=== PATIENT | female | born 1995 | race Caucasian/White ===

== ENCOUNTER → 2017-08-21 | Outpatient (CLI) | payer OTHER | END | disposition home or self-care (01) | LOC: LABWHC1 16:14 | PROVIDERS: ATTEND Obstetrics & Gynecology | DX: O20.0 Threatened abortion (principal); Z3A.00 Weeks of gestation of pregnancy not specified | CPT/HCPCS: 36415; 84702; 86850; 86900; 86901 ==

== ENCOUNTER → 2017-08-23 | Outpatient (CLI) | payer OTHER | END | disposition home or self-care (01) | LOC: LABWHC1 14:11 | PROVIDERS: ATTEND Obstetrics & Gynecology | DX: O20.0 Threatened abortion (principal) | CPT/HCPCS: 36415; 84702 ==

== ENCOUNTER → 2017-08-25 | Outpatient (CLI) | payer OTHER | END | disposition home or self-care (01) | LOC: LABWHC1 12:04 | PROVIDERS: ATTEND Obstetrics & Gynecology | DX: O20.0 Threatened abortion (principal) | CPT/HCPCS: 36415; 84702 ==

== ENCOUNTER → 2017-09-11 | Outpatient (CLI) | payer OTHER | END | disposition home or self-care (01) | LOC: LABWHC1 11:05 | PROVIDERS: ATTEND Obstetrics & Gynecology | DX: O02.1 Missed abortion (principal) | CPT/HCPCS: 36415; 84702 ==

== ENCOUNTER → 2017-09-20 | Outpatient (CLI) | payer OTHER | END | disposition home or self-care (01) | LOC: LABWHC1 10:54 | PROVIDERS: ATTEND Obstetrics & Gynecology | DX: O03.9 Complete or unspecified spontaneous abortion without complication (principal) | CPT/HCPCS: 36415; 84702 ==

== ENCOUNTER 2018-11-21 04:30 | Outpatient (CLI) | payer OTHER ==
[2018-11-21 06:31] VITALS: BP 129/78; PULSE 69; RESP 20; TEMP 96.7
[2018-11-21] MEDS ORDERED: PROMETHAZINE INJ 25 MG/ML 1 ML VIAL IM STA (07:59)
--- NOTE | 2018-12-12 21:54 | P.MSEPDOC ---
Presenting Problems - Arrival Data Date of Arrival on Unit: 11/21/18 Time of Arrival on Unit: 04:30 Mode of Transport: Ambulatory - Complaint OB-Reason for Admission/Chief Complaint: Possible Onset of Labor Medical History - Information : 1 Para: 0 Term: 0 : 0 Abortions: Spontaneous or Elective: 0 Number of Living Children: 0 - Gestational Age Gestational Age by SAMY (wks/days): 39 Weeks and 1 Days Review of Systems - Review of Systems Constitutional: No problems Breast: No problems ENT: No problems Cardiovascular: No problems Respiratory: No problems Gastrointestinal: No problems Genitourinary: No problems Musculoskeletal: No problems Neurological: No problems Skin: No problems Vital Signs - Temperature Temperature: 96.7 F Temperature Source: Temporal Artery Scan - Pulse Right Brachial Pulse Rate: 69 Pulse Assessment Method: Automatic Cuff - Respirations Respiratory Rate: 20 Oxygen Delivery Method: Room Air O2 Sat by Pulse Oximetry: 98 - Blood Pressure Right Arm Blood Pressure: 129/78 Blood Pressure Mean: 95 Blood Pressure Source: Automatic Cuff Medical Screen Scoring (Pre) - Cervical Exam Dilation: 1-3 cm = 1 Membranes: Intact - Uterine Contractions Frequency: > or = 36 weeks =2 Duration: > 40 seconds = 2 Intensity: Contraction palpated strong = 1 - Maternal Vital Signs Maternal Temperature: N/A Maternal Blood Pressure: N/A Signs of Preeclampsia: Nausea/Vomiting = 1 - Pain Assessment Pain Location and Character: Perineal Pain Scale Used: Numeric (1 - 10) Pain Intensity: 8 Pain Management Goal: 4 Pain Description: *Acute, Cramping Pain Radiation Location: back Pain Frequency: Intermittent Pain Duration: 8 Pain Duration Units: Hours Pain Behavior: Facial Grimacing, Nausea, Vocalization Pain Aggravating Factors: Contractions Non-Pharmacological Interventions: Darkened Room, Ice, Position/Reposition - Maternal Trauma Maternal Trauma: N/A - Assessment Baseline FHR: 120 NST: Reactive Position: N/A - Total Score Total Score (Pre): 7 - Level of Risk Level of Risk: Medium (6-9) Physician Notification (Pre) - Physician Notified Physician Notified Date: 11/21/18 Physician Notified Time: 07:45 Spoke With: Dr Leonard New Order Received: Yes - Notification Comment Comment: dr leonard at bedside, examines pt, gives orders, pt discharged home Disposition - Disposition OB Disposition: Discharge to home Discharge Date: 11/21/18 Discharge Time: 08:18 I agree with the RN Medical Screening Exam: No Physician's MSE Comment: Dr. Leonard's patient. Risk & Benefit of care provided described in d/c instruction: No Diagnosis: FALSE LABOR, UNSPECIFIED
== END 2018-11-21 08:18 | disposition home or self-care (01) ==
LOC: FBPOP 04:30
PROVIDERS: ATTEND Obstetrics & Gynecology
DX: O47.1 False labor at or after 37 completed weeks of gestation (principal); Z3A.39 39 weeks gestation of pregnancy
CPT/HCPCS: 59025; 99213; 96372; J2550

== ENCOUNTER 2018-11-22 18:14 | Inpatient (IN) | payer OTHER ==
[2018-11-22] MEDS ORDERED: LIDOCAINE 0.5% (PF) 5 MG/ML (50 ML SDV) SQ PRN (18:35)
[2018-11-22] MEDS ORDERED: CARBOPROST TROMETHAMINE 250 MCG/ML 1 ML AMP IM PRN (18:35)
[2018-11-22] MEDS ORDERED: METHYLERGONOVINE 0.2 MG/ML 1 ML AMP IM PRN (18:35)
[2018-11-22] MEDS ORDERED: TERBUTALINE 1 MG/ML VIAL SQ PRN (18:35)
[2018-11-22] MEDS ORDERED: OXYTOCIN 10 UNIT/ML 1 ML VIAL IM PRN (18:35)
[2018-11-22] MEDS ORDERED: PENICILLIN G POTASSIUM 5,000,000 UNIT in DEXTROSE 5% IN WATER 100 ML IVPB STA ×2 (18:35)
[2018-11-22] MEDS ORDERED: BUTORPHANOL 1 MG/ML 1 ML VIAL IV PRN (18:47)
[2018-11-22 18:54] VITALS: BMI 38.1
[2018-11-22] MEDS: LACTATED RINGERS 1,000 ML IV SCH ×2 (18:54→20:19)
[2018-11-22 19:04] LABS: Basophils % (A) 0 %; Eosinophils # (A) 0.1 k/uL (0-0.7); Eosinophils % (A) 1 %; HCT 47.4 % (34.0-46.0); HGB 15.2 gm/dL (11.4-16.0); Lymphocytes # (A) 1.8 k/uL (1.0-4.8); Lymphocytes % (A) 13 %; MCH 28.1 pg (25.0-35.0); MCHC 32.1 g/dL (31.0-37.0); MCV 87.6 fL (80.0-100.0); Mean Platelet Volume 7.5; Monocytes # (A) 0.5 k/uL (0-1.0); Monocytes % (A) 4 %; Neutrophils % (A) 81 %; Platelet Count 276 k/uL (150-450); RBC 5.41 m/uL (3.80-5.40); WBC 13.7 k/uL (3.8-10.6)
--- NOTE | 2018-11-22 19:19 | P.HPOB ---
History of Present Illness H&P Date: 11/22/18 Chief Complaint: 39-2/7 weeks, early active labor The patient is a 23-year-old 2 para 0010 admitted at 39-2/7 weeks as established by last menstrual period and confirmed by second trimester ultrasound. She is admitted in early active labor with regular contractions and having made cervical change from her last check at which time she was approximately 1-2 cm dilated and being found 4 cm in triage today. Her has been essentially uncomplicated though she was found to be group B strep positive. On admission, all signs reassuring. Obstetrical history: 2 para 0010 with one early miscarriage not requiring D&C. Current statistics are listed in history present illness. EDC of 11/27/2018 was established by last menstrual period and confirmed by second trimester ultrasound. Laboratory workup demonstrates a blood type of A+ with a negative antibody screen. Rubella status is immune. The remainder of the laboratory workup was within normal limits. Early Glucola was within normal limits as was second trimester Glucola. Group B strep status is positive. Gynecologic history: Unremarkable with no history of any infections to include STDs. Review of Systems Review of systems is confined to history of present illness. Past Medical History Past Medical History: Thyroid Disorder Additional Past Medical History / Comment(s): PCOS History of Any Multi-Drug Resistant Organisms: None Reported Past Surgical History: Adenoidectomy, Tonsillectomy Past Anesthesia/Blood Transfusion Reactions: No Reported Reaction Past Psychological History: Anxiety, Depression Smoking Status: Former smoker Past Alcohol Use History: None Reported Past Drug Use History: None Reported - Past Family History Father Family Medical History: Hypertension Medications and Allergies Home Medications Medication Instructions Recorded Confirmed Type FLUoxetine HCL [PROzac] 40 mg PO DAILY 09/10/14 11/22/18 History Jum-Rkwf-Jbwso Acid 1 cap PO DAILY 09/01/17 11/22/18 History [-U Capsule (formulary)] Allergies Allergy/AdvReac Type Severity Reaction Status Date / Time No Known Allergies Allergy Verified 11/22/18 18:18 Exam Vital Signs Temp Pulse Resp BP Pulse Ox 11/22/18 18:30 98.4 F 106 H 17 134/84 98 Intake and Output 11/22/18 11/22/18 11/22/18 06:59 14:59 22:59 Other: Weight 103.873 kg In general, this is a well-developed, well-nourished white female in no acute distress though she has discomfort with contractions. Her heart has a regular rhythm and rate without murmur. Her lungs are clear to auscultation bilaterally in all nelson. Her abdomen is gravid, nondistended, has normal active bowel sounds, is soft, nontender, and without any palpable masses aside from uterine fundus. Her extremities are without any cyanosis, clubbing, or edema and are nontender to palpation bilaterally. Digital cervical examination demonstrates her cervix to be 4 cm dilated, 80% effaced, the vertex in presentation at -1 station. Results Result Diagrams: 11/22/18 18:50 Abnormal Lab Results - Last 24 Hours (Table) 11/22/18 Range/Units 18:50 WBC 13.7 H (3.8-10.6) k/uL RBC 5.41 H (3.80-5.40) m/uL Hct 47.4 H (34.0-46.0) % Neutrophils # 11.0 H (1.3-7.7) k/uL Assessment and Plan (1) Group B streptococcal infection in Current Visit: Yes Status: Acute Code(s): O98.819 - OTH MATERNAL INFEC/PARASTC DISEASES COMP PREG, UNSP TRI; B95.1 - STREPTOCOCCUS, GROUP B, CAUSING DISEASES CLASSD ELSWHR SNOMED Code(s): 911351560 (2) Active labor at term Current Visit: Yes Status: Acute Code(s): PRM5019 - SNOMED Code(s): 72344927 Plan: The patient is admitted for active management of labor. Antibody prophylaxis is been started for group B strep. We will leave the membranes intact until at least 4 hours post antibiotics unless the patient progresses more rapidly. She will have close maternal and surveillance and expectant management will be practice. She is a good candidate for either IV or epidural analgesia and is requesting epidural at this time.
[2018-11-22] MEDS ORDERED: SODIUM CHLORIDE 0.9% 100 ML BAG ONE (19:51)
[2018-11-22] MEDS ORDERED: ROPIVACAINE 5MG/ML 20ML VIAL ONE (19:51)
[2018-11-22] MEDS ORDERED: fentaNYL (PF) 50 MCG/ML 5 ML AMP ONE (19:51)
[2018-11-22] MEDS ORDERED: PENICILLIN G POTASSIUM 2,500,000 UNIT in DEXTROSE 5% IN WATER 100 ML IVPB SCH ×2 (23:00)
[2018-11-22] MEDS ORDERED: WITCH HAZEL 1 EACH MED..PAD TOPICAL PRN (23:22)
[2018-11-22] MEDS ORDERED: diphenhydrAMINE 50 MG CAP PO PRN (23:22)
[2018-11-22] MEDS ORDERED: SIMETHICONE 80 MG CHEWABLE PO PRN (23:22)
[2018-11-22] MEDS ORDERED: HYDROCORTISONE 2.5% RECTAL CREAM 30 GM TUBE RECTAL PRN (23:22)
[2018-11-22] MEDS ORDERED: BENZOCAINE/MENTHOL SPRAY 1 GM/SPRAY AEROSOL TOPICAL PRN (23:22)
[2018-11-22] MEDS ORDERED: ZOLPIDEM 5 MG TAB PO PRN (23:22)
[2018-11-22] MEDS ORDERED: diphenhydrAMINE 50 MG/ML 1 ML VIAL IVP PRN ×2 (23:22)
[2018-11-22] MEDS ORDERED: ACETAMINOPHEN TAB 325 MG TAB PO PRN (23:22)
[2018-11-22] MEDS ORDERED: diphenhydrAMINE 25 MG CAP PO PRN (23:22)
[2018-11-22] MEDS ORDERED: LANOLIN CREAM 5 GM TUBE TOPICAL PRN (23:22)
--- NOTE | 2018-11-22 23:22 | P.PROBDLV ---
Vaginal Delivery Note - . Vaginal Delivery Note: This is a pleasant 23-year-old 2 para 0010 that presented to labor and delivery at 39-2/7 weeks with regular painful contractions. Patient was admitted to labor and delivery patient became uncomfortable requesting an epidural which was placed by anesthesia without difficulty. Patient was noted to have variables after epidural placement therefore scalp electrode was placed without difficulty. Clear fluid was noted. Patient progressed to complete began pushing bradycardia was noted throughout 2 pushes into the 80s without return to baseline. Therefore vacuum was opened informed consent was obtained from both parents, the vacuum was placed on the head. The placement was confirmed and presure was applied. The pressure was noted to be within the green pressure reading. Then throughout 1 contraction, 1 pull and the head was delivered a loose nuchal cord was noted and delivered through, the anterior shoulder was reduced under the pubic bone followed by the posterior shoulder and the infant was placed on the maternal abdomen. The umbilical cord was then doubly clamped and cut and the was handed off to awaiting receiving nurse. The placenta was then delivered spontaneously intact and was noted to be meconium stained. On inspection the patient's vaginal vault a midline second degree laceration was noted along with a right labial laceration. The uterus was noted to be firm and below the umbilicus at this time. The second-degree midline laceration was repaired with 3-0 Rapide in the usual fashion. The labial laceration was repaired in a running fashion with 4-0 chromic. Both lacerations were noted to be hemostatic Estimated blood loss was noted to be 300 mL Patient and tolerated delivery well and are resting comfortably.
[2018-11-22] MEDS ORDERED: OXYTOCIN 20 UNITS/1000 ML NS 1,000 ML IV SCH (23:30)
[2018-11-23] MEDS: IBUPROFEN 600 MG TAB PO PRN ×3 (05:19→23:30)
[2018-11-23 06:49] LABS: Basophils % (A) 0 %; Eosinophils # (A) 0.1 k/uL (0-0.7); Eosinophils % (A) 0 %; HCT 34.8 % (34.0-46.0); Lymphocytes # (A) 2.2 k/uL (1.0-4.8); Lymphocytes % (A) 13 %; MCH 27.7 pg (25.0-35.0); MCHC 32.5 g/dL (31.0-37.0); MCV 85.2 fL (80.0-100.0); Monocytes # (A) 1.3 k/uL (0-1.0); Monocytes % (A) 7 %; Neutrophils # (A) 13.6 k/uL (1.3-7.7); Neutrophils % (A) 78 %; Platelet Count 209 k/uL (150-450); RBC 4.08 m/uL (3.80-5.40); RDW 14.1 % (11.5-15.5); WBC 17.4 k/uL (3.8-10.6)
[2018-11-23 07:01] LABS: HGB 11.3 gm/dL (11.4-16.0)
[2018-11-23] MEDS: SENNOSIDES-DOCUSATE SODIUM 1 EACH TAB PO SCH (09:22)
[2018-11-23] MEDS: FLUoxetine HCL 20 MG CAP PO SCH (09:22)
--- NOTE | 2018-11-23 10:59 | P.PNOBGVD ---
Subjective - Subjective Patient reports: Reports appetite normal, Reports voiding normally, Reports pain well controlled, Reports ambulating normally : doing well Objective - Latest Vital Signs Latest vital signs: Vital Signs Temp Pulse Resp BP Pulse Ox 11/23/18 09:00 98.3 F 88 16 123/68 11/23/18 04:00 97.5 F L 80 16 94/51 11/23/18 01:11 97.7 F 76 16 128/67 11/23/18 00:41 81 16 133/65 11/23/18 00:11 95 16 122/55 11/23/18 00:00 74 16 11/22/18 23:56 74 16 133/64 11/22/18 23:41 97.2 F L 89 16 138/63 11/22/18 23:26 93 16 150/67 11/22/18 23:11 98 18 129/84 11/22/18 18:30 98.4 F 106 H 17 134/84 98 Intake and Output 11/22/18 11/23/18 11/23/18 22:59 06:59 14:59 Output Total 450 300 Balance -450 -300 Output: Urine 450 Estimated Blood Loss 300 Other: # Voids 1 Weight 103.873 kg - Exam Extremities: Present: normal Abdomen: Present: normal appearance, soft Uterus: Present: normal, firm (The uterine fundus is tonic and nontender around the umbilicus.) - Labs Labs: Abnormal Lab Results - Last 24 Hours (Table) 11/22/18 11/23/18 Range/Units 18:50 06:37 WBC 13.7 H 17.4 H (3.8-10.6) k/uL RBC 5.41 H (3.80-5.40) m/uL Hgb 11.3 L D (11.4-16.0) gm/dL Hct 47.4 H (34.0-46.0) % Neutrophils # 11.0 H 13.6 H (1.3-7.7) k/uL Monocytes # 1.3 H (0-1.0) k/uL Assessment and Plan (1) Group B streptococcal infection in Current Visit: Yes Status: Acute Code(s): O98.819 - OTH MATERNAL INFEC/PARASTC DISEASES COMP PREG, UNSP TRI; B95.1 - STREPTOCOCCUS, GROUP B, CAUSING DISEASES CLASSD ELSWHR SNOMED Code(s): 263266736 (2) Active labor at term Current Visit: Yes Status: Acute Code(s): MDZ0890 - SNOMED Code(s): 76300819 (3) Vacuum extraction, delivered, current hospitalization Current Visit: Yes Status: Acute Code(s): O66.5 - ATTEMPTED APPLICATION OF VACUUM EXTRACTOR AND FORCEPS SNOMED Code(s): 678615762 Plan: Continue routine care. The patient did not receive 4 hours of prophylactic antibiotics and, as result, the is to be observed for 48 hours . I anticipate discharge home tomorrow pending complications.
[2018-11-23] MEDS: PRENATAL VIT-IRON-FOLIC ACID 1 EACH CAP PO SCH (18:01)
[2018-11-24] MEDS: SENNOSIDES-DOCUSATE SODIUM 1 EACH TAB PO SCH ×3 (07:02→21:22)
[2018-11-24] MEDS: IBUPROFEN 600 MG TAB PO PRN ×2 (08:30→21:21)
[2018-11-24 08:40] VITALS: RESP 20
[2018-11-24] MEDS: FLUoxetine HCL 20 MG CAP PO SCH (08:58)
--- NOTE | 2018-11-24 11:10 | P.DS ---
Providers Date of admission: 11/22/18 18:24 Expected date of discharge: 11/24/18 Attending physician: Harjit Nettles Primary care physician: Harjit Nettles - Discharge Diagnosis(es) (1) Group B streptococcal infection in Current Visit: Yes Status: Acute (2) Active labor at term Current Visit: Yes Status: Acute (3) Vacuum extraction, delivered, current hospitalization Current Visit: Yes Status: Acute Hospital Course: The patient is a 23-year-old 2 para 0010 admitted at 39-2/7 weeks by good dating parameters. She is admitted in early active labor with all signs reassuring. Her was uncomplicated though she was group B strep positive. As result, antibody prophylaxis was started. She did have an epidural catheter placed for analgesia but made rapid progress through the active phase of labor to complete. While pushing, heart tones remained in the 80s over the course of 2 contractions with no return which prompted placement of a outlet vacuum extractor. Over the course of the next push, she was delivered of a viable 7 lbs. 0 oz. baby girl with Apgars of 6 at 1 minute, 9 at 5 minutes, and 9 at 10 minutes without difficulty. Her course was unremarkable with vital signs remaining stable and her temperature was afebrile throughout. She was deemed stable for discharge on day #2. The infant of was required to remain in the hospital for 48 hours of observation as 4 hours of antibiotics had not been infused at the time of delivery. The patient was discharged home to follow-up in the office in 6 weeks' time routinely. Discharge instructions included calling for any significantly increased bleeding or foul-smelling lochia, significantly increased fever abdominal pain, perineal complaints, breast complaints, or anything else that concerned her. She was additionally instructed to have nothing in the vagina for at least 6 weeks time to include intercourse. She understood her instructions and agrees to follow up as noted above. Discharge medications included only [id number] analgesic pain medications as well as continued vitamins as she has opted to breast-feed. Maternal blood type is A+ and rubella status is immune. Plan - Discharge Summary New Discharge Prescriptions: No Action FLUoxetine HCL [PROzac] 40 mg PO DAILY Fpj-Ddhv-Wdbbi Acid [-U Capsule (formulary)] 1 cap PO DAILY Discharge Medication List FLUoxetine HCL [PROzac] 40 mg PO DAILY 09/10/14 [History] Fea-Zuad-Olhtz Acid [-U Capsule (formulary)] 1 cap PO DAILY 09/01/17 [History]
[2018-11-24] MEDS: PRENATAL VIT-IRON-FOLIC ACID 1 EACH CAP PO SCH (13:51)
[2018-11-24 16:52] VITALS: BP 123/70; PULSE 75; TEMP 98.7
== END 2018-11-24 23:22 | disposition home or self-care (01) | DRG 807 ==
LOC: FBPOP 18:14 → 4FBP 18:24
PROVIDERS: ADMIT Obstetrics & Gynecology; ATTEND Obstetrics & Gynecology
PROC: 10D07Z6 Extraction of Products of Conception, Vacuum, Via Natural or Artificial Opening (ICD-10-PCS; principal; 2018-11-22)
PROC: 0KQM0ZZ Repair Perineum Muscle, Open Approach (ICD-10-PCS; 2018-11-22)
PROC: 3E0R3BZ Introduction of Anesthetic Agent into Spinal Canal, Percutaneous Approach (ICD-10-PCS; 2018-11-22)
PROC: 00HU33Z Insertion of Infusion Device into Spinal Canal, Percutaneous Approach (ICD-10-PCS; 2018-11-22)
PROC: 4A1H74Z Monitoring of Products of Conception, Cardiac Electrical Activity, Via Natural or Artificial Opening (ICD-10-PCS; 2018-11-22)
PROC: 4A1H7HZ Monitoring of Products of Conception, Cardiac Sound, Via Natural or Artificial Opening (ICD-10-PCS; 2018-11-22)
PROC: 4A1H7FZ Monitoring of Products of Conception, Cardiac Rhythm, Via Natural or Artificial Opening (ICD-10-PCS; 2018-11-22)
PROC: 4A1H7CZ Monitoring of Products of Conception, Cardiac Rate, Via Natural or Artificial Opening (ICD-10-PCS; 2018-11-22)
PROC: 10H073Z Insertion of Monitoring Electrode into Products of Conception, Via Natural or Artificial Opening (ICD-10-PCS; 2018-11-22)
DX: O98.819 Other maternal infectious and parasitic diseases complicating pregnancy, unspecified trimester (principal); Z37.0 Single live birth; O99.344 Other mental disorders complicating childbirth; B95.1 Streptococcus, group B, as the cause of diseases classified elsewhere; O69.81X0 Labor and delivery complicated by cord around neck, without compression, not applicable or unspecified; F32.9 Major depressive disorder, single episode, unspecified; O77.0 Labor and delivery complicated by meconium in amniotic fluid; Z3A.39 39 weeks gestation of pregnancy; O70.1 Second degree perineal laceration during delivery; Z79.899 Other long term (current) drug therapy; Z87.42 Personal history of other diseases of the female genital tract; Z86.39 Personal history of other endocrine, nutritional and metabolic disease; Z87.891 Personal history of nicotine dependence; Z82.49 Family history of ischemic heart disease and other diseases of the circulatory system
CPT/HCPCS: 59025; 85025; 86850; 86900; 86901; 88307; 99213

== ENCOUNTER → 2020-03-12 | Outpatient (CLI) | payer OTHER ==
--- NOTE | 2020-03-12 10:10 | US ---
EXAMINATION TYPE: US thyroid st tissue head/neck DATE OF EXAM: 03/12/2020 COMPARISON: NONE CLINICAL HISTORY: 24-year-old female R22.1 SWELLING, MASS AND LUMP. Palpable lump back of right side of neck x couple months TECHNIQUE: Multiple sonographic images along the posterior right neck were obtained. Images of the co ntralateral side were obtained for comparison purposes. FINDINGS: Right back of neck: Circumscribed, oval 5.1 x 0.9 x 4.4cm isoechoic non vascular area seen at patient 's palpable site. This seems to be confined to the subcutaneous adipose layer. Left back of neck: no abnormality seen IMPRESSION: A 5.1 x 4.4 x 0.9 cm circumscribed, oval isoechoic mass that appears localized to the subcutaneous ad ipose layer at the site of patient's palpable abnormality along the posterior right neck. If symptoma tic or growth is noted, consider surgical excision. The finding is nonspecific but a lipoma is favore d. Correlate clinically as to if the area is soft and compressible.
== END | disposition home or self-care (01) ==
LOC: RADUSWWP 07:38
PROVIDERS: ATTEND Family Medicine
DX: R93.89 Abnormal findings on diagnostic imaging of other specified body structures (principal); D17.0 Benign lipomatous neoplasm of skin and subcutaneous tissue of head, face and neck
CPT/HCPCS: 76536

== ENCOUNTER → 2020-08-09 | Outpatient (CLI) | payer OTHER | END | disposition home or self-care (01) | LOC: LABWHC1 10:46 | PROVIDERS: ATTEND Otolaryngology Facial Plastic Surgery | DX: Z20.822 Contact with and (suspected) exposure to COVID-19 (principal) | CPT/HCPCS: U0003; C9803; U0005 ==